=== PATIENT | male | born 2000 | race Caucasian/White ===

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

== ENCOUNTER 2021-07-08 14:35 | Emergency (ER) | payer BC ==
[2021-07-08 15:01] VITALS: BP 124/69; PULSE 84
[2021-07-08] MEDS ORDERED: Lidocaine 1% 10 ML MDV INJECT ONE (15:28)
== END 2021-07-08 16:44 | disposition home or self-care (01) ==
LOC: JD.ED 14:35
DX: S61.217A Laceration without foreign body of left little finger without damage to nail, initial encounter (principal); Z88.0 Allergy status to penicillin; W26.0XXA Contact with knife, initial encounter
CPT/HCPCS: 12001; 99282-25; 99283

== ENCOUNTER 2021-11-12 17:16 | Emergency (ER) | payer BC ==
[2021-11-12 17:40] VITALS: BP 128/75; PULSE 90
[2021-11-12] MEDS ORDERED: Lidocaine 1% 10 ML MDV INJECT ONE (17:55)
== END 2021-11-12 18:43 | disposition home or self-care (01) ==
LOC: JD.ED 17:16
DX: S61.211A Laceration without foreign body of left index finger without damage to nail, initial encounter (principal); Z88.0 Allergy status to penicillin; W26.8XXA Contact with other sharp object(s), not elsewhere classified, initial encounter
CPT/HCPCS: 12001; 99282; 99282-25

== ENCOUNTER 2022-01-09 21:41 | Emergency (ER) | payer BC ==
[2022-01-09 22:51] VITALS: BP 132/85; PULSE 82
== END 2022-01-10 00:07 | disposition left against medical advice (07) ==
LOC: JD.ED 21:41
DX: R53.83 Other fatigue (principal); Z88.0 Allergy status to penicillin
CPT/HCPCS: 99283